=== PATIENT | female | born 1985 | race Caucasian/White ===

== ENCOUNTER 2018-01-22 16:50 | Emergency (ER) | payer OTHER ==
--- NOTE | 2018-01-22 17:19 | ED Physician Documentation ---
PD HPI LOWER EXT INJURY - Stated complaint Stated Complaint: R FOOT 2ND TOE INJURY - Chief complaint Chief Complaint: Ext Problem - History obtained from History obtained from: Patient - History of Present Illness PD HPI LOW EXT INJURY LOCATION: Right, Toe Type of injury: Blunt / blow (kicked tree accidentally) Timing - onset: Today (345pm) Timing - details: Abrupt onset Associated symptoms: Swelling. No: Weakness, Numbness, Tingling Review of Systems Constitutional: denies: Fever, Chills, Myalgias : denies: Now EGA Skin: reports: Reviewed and negative Musculoskeletal: reports: Reviewed and negative PD PAST MEDICAL HISTORY - Past Medical History Past Medical History: No Cardiovascular: None Respiratory: None Endocrine/Autoimmune: None GI: None : None HEENT: None Psych: None Musculoskeletal: Other Derm: None - Past Surgical History Past Surgical History: Yes Ortho: Other - Present Medications Home Medications: Ambulatory Orders Medication Instructions Recorded Confirmed Ethinyl Estradiol/Drospirenone 1 each PO 10/18/16 [Ilda 28 Tablet] - Allergies Allergies/Adverse Reactions: Allergies Allergy/AdvReac Type Severity Reaction Status Date / Time poison tere extract AdvReac Rash Verified 01/22/18 16:58 - Social History Does the pt smoke?: No Smoking Status: Never smoker Does the pt drink ETOH?: Yes ETOH Use: Wine - Immunizations Immunizations are current?: No PD ED PE NORMAL - Vitals Vital signs reviewed: Yes - General General: Alert and oriented X 3, No acute distress - Extremities Extremities: Other (2nd toe right: TTP prox phalanx with ecchymosis but no deformity. NVI at tip) - Neuro Neuro: Alert and oriented X 3, Normal speech Results - Vitals Vitals: Vital Signs - 24 hr 01/22/18 16:54 Temperature 36 C L Heart Rate 100 Respiratory 18 Rate Blood Pressure 141/87 H O2 Saturation 100 Oxygen O2 Source Room air - Rads (name of study) R toe XR Radiology: EMP read contemporaneously (negative) Departure - Departure Disposition: 01 Home, Self Care Clinical Impression: Sprain of toe Qualifiers: Encounter type: initial encounter Qualified Code(s): S93.509A - Unspecified sprain of unspecified toe(s), initial encounter Condition: Good Record reviewed to determine appropriate education?: Yes Instructions: ED Sprain Foot Comments: Ibuprofen as needed for pain, follow-up with your doctor in 1-2 weeks if not improving. Your blood pressure was elevated today on check into the emergency department. This does not mean that you have hypertension, it is a common phenomenon to come to the emergency department and have elevated blood pressure. I recommend that you see your primary care physician within the week to have it rechecked when you are feeling better.
--- NOTE | 2018-01-22 18:04 | XRAY Preliminary Report ---
Exam: XR TOE(S) RT IMPRESSION: No acute bony abnormality. [facility] SITE ID: [id number]
--- NOTE | 2018-01-22 18:09 | XRAY Report ---
EXAM: RIGHT SECOND TOE RADIOGRAPHY EXAM DATE: 01/22/2018 05:56 PM. CLINICAL HISTORY: Right second toe pain after kicking a tree root earlier today. COMPARISON: None. TECHNIQUE: 3 views. FINDINGS: Bones: Normal. No fracture or bone lesion. Joints: Normal. No subluxations. Soft Tissues: Mild edema second toe. No radiopaque foreign bodies. IMPRESSION: No acute bony abnormality. [facility] Referring Provider Line: [phone] SITE ID: [id number]
[2018-01-22 18:30] VITALS: BP 126/93
== END 2018-01-22 18:28 | disposition home or self-care (01) ==
LOC: ED 16:50
DX: S93.504A Unspecified sprain of right lesser toe(s), initial encounter (principal); W22.09XA Striking against other stationary object, initial encounter; R03.0 Elevated blood-pressure reading, without diagnosis of hypertension
CPT/HCPCS: 73660; 99282; 99283

== ENCOUNTER 2021-06-11 12:55 | Emergency (ER) | payer OTHER ==
[2021-06-11 13:14] VITALS: BP 144/107
--- NOTE | 2021-06-11 14:10 | ED Physician Documentation ---
History of Present Illness - Stated complaint Stated Complaint: HEADACHE/CONGESTION - Chief complaint Chief Complaint: Neuro - History obtained from History obtained from: Patient - History of Present Illness Timing: How many days ago (2-3) Pain level max: 5 Pain level now: 5 - Additonal information Additional information: 36-year-old female, vaccinated against Covid presents to the emergency department stating that she was exposed to Covid on Monday as is concerned about potential Covid. She states she has had sinus pressure, mainly in the forehead. Occasional dizziness. Took Sudafed which helped. No cough. No fever. No chills. Denies any possibility of . Worse with bending over, better with rest. Review of Systems Constitutional: denies: Fever, Chills Nose: reports: Sinus pressure / pain Throat: denies: Sore throat Respiratory: denies: Cough GI: denies: Vomiting, Diarrhea : denies: Now EGA Skin: denies: Rash Musculoskeletal: denies: Neck pain, Back pain PD PAST MEDICAL HISTORY - Past Medical History Cardiovascular: None Respiratory: None Endocrine/Autoimmune: None GI: None : None HEENT: None Psych: None Musculoskeletal: Other Derm: None - Past Surgical History Past Surgical History: Yes Ortho: Other - Present Medications Home Medications: Ambulatory Orders Medication Instructions Recorded Confirmed Ethinyl Estradiol/Drospirenone 1 each PO DAILY 10/18/06/11/21 [Ilda 28 Tablet] Cetirizine HCl/Pseudoephedrine 1 each PO BID PRN #30 ea 06/11/21 [Zyrtec-D Tablet] - Allergies Allergies/Adverse Reactions: Allergies Allergy/AdvReac Type Severity Reaction Status Date / Time poison tere extract AdvReac Rash Verified 06/11/21 13:11 - Social History Does the pt smoke?: No Smoking Status: Never smoker Does the pt drink ETOH?: Yes - Immunizations Immunizations are current?: No PD ED PE NORMAL - Vitals Vital signs reviewed: Yes - General General: Alert and oriented X 3, No acute distress - HEENT HEENT: Ears normal, Moist mucous membranes, Pharynx benign, Other (mild TTP over the frontal sinsu) - Neck Neck: Supple, no meningeal sign - Cardiac Cardiac: RRR - Respiratory Respiratory: No respiratory distress, Clear bilaterally - Derm Derm: Warm and dry - Neuro Neuro: Alert and oriented X 3 Results - Vitals Vitals: Vital Signs - 24 hr 06/11/21 13:11 Temperature 36.8 C Heart Rate 91 Respiratory 18 Rate Blood Pressure 144/107 H O2 Saturation 99 Oxygen O2 Source Room air PD MEDICAL DECISION MAKING - ED course Complexity details: considered differential, d/w patient ED course: 36-year-old female with what appears to be sinus congestion. Will place on decongestants. Covid test performed. Patient is well-appearing, nontoxic. Afebrile. No hypoxia. Patient counseled regarding signs and symptoms for which I believe and urgent re-evaluation would be necessary. Patient with good understanding of and agreement to plan and is comfortable going home at this time This document was made in part using voice recognition software. While efforts are made to proofread this document, sound alike and grammatical errors may occur. Departure - Departure Disposition: 01 Home, Self Care Clinical Impression: Viral URI Condition: Good Instructions: ED Viral Syndrome Follow-Up: your,doctor in 1 week [Other] Prescriptions: Cetirizine HCl/Pseudoephedrine [Zyrtec-D Tablet] 1 each PO BID PRN #30 ea PRN Reason: nasal congestion Comments: You do have a Covid test pending. This should be resulted in the next 24 to 48 hours. You can check results on the patient portal. Return if you worsen. Discharge Date/Time: 06/11/21 14:11
== END 2021-06-11 14:11 | disposition home or self-care (01) ==
LOC: ED 12:55
DX: J06.9 Acute upper respiratory infection, unspecified (principal); Z20.822 Contact with and (suspected) exposure to COVID-19
CPT/HCPCS: 99283; 99284

== ENCOUNTER 2024-05-08 09:51 | Emergency (ER) | payer OTHER ==
[2024-05-08 10:19] VITALS: O2SAT 100
[2024-05-08] MEDS: SODIUM CHLORIDE 0.9% 1,000 ML IV STA (12:35)
[2024-05-08 12:36] LABS: BASOPHILS % (AUTO) 0.2 %; EOSINOPHILS # (AUTO) 0.1 10^3/uL (0.0-0.7); EOSINOPHILS % (AUTO) 0.7 %; HCT - HEMATOCRIT 39.3 % (37.0-47.0); HGB - HEMOGLOBIN 13.1 g/dL (12.0-16.0); LYMPHOCYTES # (AUTO) 1.6 10^3/uL (1.5-3.5); LYMPHOCYTES % (AUTO) 18.8 %; MEAN CORPUSCULAR HEMOGLOBIN 30.4 pg (27.0-31.0); MEAN CORPUSCULAR HGB CONC 33.3 g/dL (32.0-36.0); MEAN CORPUSCULAR VOLUME 91.2 fL (81.0-99.0); MEAN PLATELET VOLUME 10.6 fL (7.9-10.8); MONOCYTES # (AUTO) 0.4 10^3/uL (0.0-1.0); MONOCYTES % (AUTO) 4.5 %; NEUTROPHILS # (AUTO) 6.4 10^3/uL (1.5-6.6); NEUTROPHILS % (AUTO) 75.6 %; PLT - PLATELET COUNT 294 10^3/uL (130-450); RED BLOOD COUNT 4.31 10^6/uL (4.20-5.40); RED CELL DISTRIBUTION WIDTH 13.2 % (12.0-15.0); WHITE BLOOD COUNT 8.5 x10^3/uL (4.8-10.8)
[2024-05-08 13:03] LABS: HCG,QUALITATIVE BLOOD NEGATIVE
[2024-05-08 13:05] LABS: ALBUMIN 3.9 g/dL (3.2-5.5); ALBUMIN/GLOBULIN RATIO 1.3 (1.0-2.2); BILIRUBIN,TOTAL 0.4 mg/dL (0.2-1.0); CALCIUM 9.6 mg/dL (8.5-10.3); CREATININE 0.7 mg/dL (0.6-1.3); POTASSIUM 4.2 mmol/L (3.5-4.5); TOTAL PROTEIN 6.8 g/dL (6.4-8.9)
--- NOTE | 2024-05-08 14:35 | CT Report ---
PROCEDURE: Head WO INDICATIONS: vertigo TECHNIQUE: Noncontrast 4.5 mm thick angled axial sections acquired from the foramen magnum to the vertex. For r adiation dose reduction, the following was used: automated exposure control, adjustment of mA and/or kV according to patient size. COMPARISON: None. FINDINGS: Image quality: Diagnostic. CSF spaces: Basal cisterns are patent. No extra-axial fluid collections. Ventricles are normal in size and shape. Brain: No midline shift. No intracranial masses or hemorrhage. Riley-white matter interface is norm al. Skull and face: Calvarium and visualized facial bones are intact, without suspicious lesions. Sinuses: Visualized sinuses and mastoids are clear. IMPRESSION: No acute intracranial pathology. Reviewed by: Marcy Falcon MD, PhD on 05/08/2024 2:33 PM PDT Approved by: Marcy Falcon MD, PhD on 05/08/2024 2:33 PM PDT Station ID: [id number]
[2024-05-08] MEDS: MECLIZINE 12.5 MG TABLET PO STA (15:00)
--- NOTE | 2024-05-08 15:17 | ED Physician Documentation ---
History of Present Illness - Stated complaint Stated Complaint: LOSS OF/OFF BALANCE, SOA - Chief complaint Chief Complaint: Neuro - History obtained from History obtained from: Patient - Additonal information Additional information: Patient comes to the emergency department chief complaint of "feeling off balance". She states it happens about once a year and that she has never been checked out for it. She states that it isn't specifically a feeling of movement or spinning, and that she has no focal weakness or specific ataxia. She states it feels better if she tilts her head to the left. She mainly noticed the sx today, but has been mildly congested for the past couple days. She states that other family members have vertigo, and she wonders if it is a form or that. No head injury. No recent illness. She has not had any near-falls. She can reach for and pick things up without difficulty. Her gait has been normal. She is otherwise fairly healthy. PD PAST MEDICAL HISTORY - Past Medical History Cardiovascular: None Respiratory: None Endocrine/Autoimmune: None GI: None : None HEENT: None Psych: None Musculoskeletal: Other Derm: None - Past Surgical History Past Surgical History: Yes Ortho: Other - Present Medications Home Medications: Ambulatory Orders Medication Instructions Recorded Confirmed Ethinyl Estradiol/Drospirenone 1 each PO DAILY 10/18/06/11/21 [Ilda 28 Tablet] Cetirizine HCl/Pseudoephedrine 1 each PO BID PRN #30 ea 06/11/21 [Zyrtec-D Tablet] Meclizine HCl [Antivert] 25 mg PO PRN PRN #30 ea 05/10/24 - Allergies Allergies/Adverse Reactions: Allergies Allergy/AdvReac Type Severity Reaction Status Date / Time poison tere extract AdvReac Rash Verified 05/08/24 10:08 - Social History Does the pt smoke?: No Smoking Status: Never smoker Does the pt drink ETOH?: Yes - Immunizations Immunizations are current?: No PD ED PE NORMAL - Vitals Vital signs reviewed: Yes - General General: Alert and oriented X 3, No acute distress, Well developed/nourished - HEENT HEENT: Atraumatic, PERRL, EOMI, Moist mucous membranes, Other (No nystagmus) - Neck Neck: Supple, no meningeal sign - Cardiac Cardiac: RRR, No murmur, Strong equal pulses - Respiratory Respiratory: No respiratory distress, Clear bilaterally - Abdomen Abdomen: Soft, Non tender, Non distended - Derm Derm: Normal color, Warm and dry, No rash - Extremities Extremities: No deformity - Neuro Neuro: Alert and oriented X 3, carton maker 2-12 intact, No motor deficit, No sensory deficit, Normal speech, Other (Pt ambulates on a narrow-based gait, and does not exhibit any ataxia in her movements.) - Psych Psych: Normal mood, Normal affect Results - Vitals Vitals: Oxygen O2 Source Room air - Labs Labs: Laboratory Tests 05/08/24 05/08/24 05/08/24 12:30 12:30 12:30 WBC 8.5 RBC 4.31 Hgb 13.1 Hct 39.3 MCV 91.2 MCH 30.4 MCHC 33.3 RDW 13.2 Plt Count 294 MPV 10.6 Neut # (Auto) 6.4 Lymph # (Auto) 1.6 Towns # (Auto) 0.4 Eos # (Auto) 0.1 Baso # (Auto) 0.0 Absolute Nucleated RBC 0.00 Nucleated RBC % 0.0 Sodium 139 Potassium 4.2 Chloride 107 Carbon Dioxide 24 Anion Gap 8.0 BUN 11 Creatinine 0.7 Estimated GFR (MDRD) 92 Glucose 98 Calcium 9.6 Total Bilirubin 0.4 AST 13 ALT 11 Alkaline Phosphatase 45 Total Protein 6.8 Albumin 3.9 Globulin 2.9 Albumin/Globulin Ratio 1.3 Lipase 15 Serum HCG, Qual NEGATIVE - Rads (name of study) head CT Relevant Findings:: Final report received, See rad report (negative) PD Medical Decision Making - ED course Complexity details: reviewed results, re-evaluated patient, considered differential, d/w patient ED course: The pt was given IV fluids and meclizine, and worked up with labs and CT head, which were unremarkable. I d/w pt that it's possible that her sx represent a variant of vertigo. I do not find evidence of a stroke. We have discussed symptomatic management, and the need for follow-up, should her sx persist for more than the next week. Departure - Departure Disposition: 01 Home, Self Care Clinical Impression: Vertigo Condition: Stable Instructions: ED Vertigo Unspecified Prescriptions: Meclizine HCl [Antivert] 25 mg PO PRN PRN #30 ea PRN Reason: Vertigo Comments: Your head CT and labs look good. We have also treated you with IV fluids. It is not clear what is causing your episodes that they do sound positional. Your symptoms are not entirely typical of vertigo though the they do have some features of this. Since these occur in very widely spaced intervals of a year or more, it is up to you whether you want to follow-up on these with your primary doctor with the goal of seeing a specialist. If you did follow-up with a specialist, most likely neurologist or ear nose throat specialist would be the most appropriate. Your labs and CT scan are reassuring here and you are stable for discharge. Please be sure you drink plenty of fluids and get plenty of rest. Please call your primary doctor for the next available appointment. Forms: PCP List Discharge Date/Time: 05/08/24 16:02
[2024-05-08 15:41] VITALS: BP 122/79
== END 2024-05-08 16:02 | disposition home or self-care (01) ==
LOC: ED 09:51
DX: R42 Dizziness and giddiness (principal)
CPT/HCPCS: 36415; 70450; 80053; 83690; 84703; 85025; 99284; A9270